=== PATIENT | female | born 1935 | race Caucasian/White ===

== ENCOUNTER 2018-06-17 11:17 | Inpatient (IN) | payer MEDICARE, OTHER ==
[~2018-06-17] VITALS: Ht 165.1 cm; Wt 73.3 kg
[2018-06-17] MEDS ORDERED: ALBUTEROL/IPRATROPIUM 2.5MG/0.5MG, 3 ML NPPB ONE (11:30)
[2018-06-17] MEDS ORDERED: SODIUM CHLORIDE FLUSH 10ML SYR IVF ONE (11:30)
[2018-06-17 12:18] LABS: MEAN CORPUSCULAR HEMOGLOBIN 30.1 pg (27.0-34.8); MEAN CORPUSCULAR HGB CONC 33.9 g/dL (32.4-35.8); MEAN CORPUSCULAR VOLUME 88.8 fL (80-100); MEAN PLATELET VOLUME 6.9 fL (7.4-10.4); PLATELET COUNT 215 x10^3/uL (130-400); RED BLOOD COUNT 4.69 x10^6/uL (3.82-5.3); RED CELL DISTRIBUTION WIDTH 14.1 % (9.6-15.2)
[2018-06-17] MEDS ORDERED: ALBUTEROL/IPRATROPIUM 2.5MG/0.5MG, 3 ML ONE (12:22)
[2018-06-17 12:34] LABS: ALBUMIN 3.1 g/dL (3.4-5.0); ANION GAP 7 mmol/L (5-15); CALCIUM 8.3 mg/dL (8.5-10.1); CHLORIDE 108 mmol/L (98-107)
[2018-06-17 12:40] LABS: CREATININE 0.94 mg/dL (0.55-1.02); TROPONIN I < 0.015 ng/mL (0.000-0.045)
[2018-06-17 12:46] LABS: BASOPHILS % (AUTO) 0 % (0-1); EOSINOPHILS # (AUTO) 0.04 x10^3/uL (0-0.4); EOSINOPHILS % (AUTO) 0 % (1-7); LYMPHOCYTES # (AUTO) 0.33 x10^3/uL (1-3.4); LYMPHOCYTES % (AUTO) 2 % (22-44); MD SCAN; MONOCYTES # (AUTO) 0.29 x10^3/uL (0.2-0.8); MONOCYTES % (AUTO) 2 % (2-9); NEUTROPHILS % (AUTO) 96 % (42-75)
--- NOTE | 2018-06-17 12:55 | NUR ---
LUNCH RN: RT AT BEDSIDE FOR RT TX.
[2018-06-17] MEDS ORDERED: CEFTRIAXONE PMX 1GM/50ML 50 ML IV ONE (13:00)
[2018-06-17] MEDS ORDERED: AZITHROMYCIN 500 MG in SODIUM CHLORIDE 0.9% 250 ML IV ONE (13:00)
[2018-06-17] MEDS ORDERED: CEFTRIAXONE PMX 1GM/50ML 50 ML ONE (13:30)
--- NOTE | 2018-06-17 13:39 | NUR ---
PT RESTING ON GURNEY. IV ABX INFUSING PER ORDER. PT STATES RELIEF OF SOB S/P RT TREATMENT. ALL CONCERNS ADRESSED. PT TO BE ADMITTED.
[2018-06-17] MEDS ORDERED: ALBU0.63 NEB (13:56)
[2018-06-17] MEDS ORDERED: FLUT12AE INH (13:56)
[2018-06-17] MEDS ORDERED: BLOOD PRESSURE MED (13:56)
[2018-06-17] MEDS ORDERED: "\\\"WATER PILL\\\"" (13:58)
--- NOTE | 2018-06-17 15:16 | NUR ---
HOSPITALIST TO BEDSIDE.
[2018-06-17] MEDS ORDERED: CYCLOBENZAPRINE 10 MG TABLET PO PRN (15:30)
[2018-06-17] MEDS ORDERED: ACETAMINOPHEN 325 MG TABLET PO PRN (15:30)
[2018-06-17] MEDS ORDERED: LABETALOL 5MG/ML, 20ML IVPush PRN (15:30)
[2018-06-17] MEDS ORDERED: DOCUSATE 100 MG CAPSULE PO PRN (15:30)
[2018-06-17] MEDS ORDERED: ONDANSETRON 2MG/ML, 2ML IVPush PRN (15:30)
[2018-06-17] MEDS ORDERED: morphine SULFATE 10 MG/ML, 1ML IVPush PRN (15:30)
[2018-06-17] MEDS ORDERED: ENOXAPARIN 40 MG/0.4 ML ONE (16:45)
[2018-06-17] MEDS: ENOXAPARIN 40 MG/0.4 ML SQ SCH (16:49)
--- NOTE | 2018-06-17 16:49 | NUR ---
pt porovided with meal tray. toshia. all cocnerns adressed. Addendum: 06/17/18 at 1741 by JERE pt provided with meal tray. toshia. all concerns adressed.
[2018-06-17 17:41] LABS: TROPONIN I < 0.015 ng/mL (0.000-0.045)
--- NOTE | 2018-06-17 17:45 | NUR ---
sbar report to lotus patiño over phone.
[2018-06-17 18:05] VITALS: BP 137/80
[2018-06-17] MEDS ORDERED: ALBUTEROL SULFATE 2.5 MG/3 ML NPPB PRN (18:30)
[2018-06-17] MEDS: BUDESONIDE 0.5 MG/2 ML INHA NPPB SCH ×2 (19:00→19:01)
[2018-06-17] MEDS: ALBUTEROL/IPRATROPIUM 2.5MG/0.5MG, 3 ML NPPB SCH (19:01)
[2018-06-17 20:00] VITALS: BP 107/65
[2018-06-17 20:51] LABS: TROPONIN I < 0.015 ng/mL (0.000-0.045)
[2018-06-17] MEDS ORDERED: SODIUM CHLORIDE 0.9% 1,000 ML IV SCH (21:30)
[2018-06-18 01:14] VITALS: BP 146/70
[2018-06-18] MEDS: ALBUTEROL/IPRATROPIUM 2.5MG/0.5MG, 3 ML NPPB SCH ×4 (05:53→19:00)
[2018-06-18 06:20] LABS: ANION GAP 4 mmol/L (5-15); CHLORIDE 111 mmol/L (98-107); TRIGLYCERIDES 88 mg/dL (50-200); VLDL CHOLESTEROL 18 mg/dL (0-25)
[2018-06-18 06:22] LABS: BASOPHILS # (AUTO) 0.02 x10^3/uL (0-0.1); BASOPHILS % (AUTO) 0 % (0-1); CHOL/HDL RATIO 1.8; CHOLESTEROL, TOTAL 160 mg/dL (140-239); CREATININE 1.09 mg/dL (0.55-1.02); EOSINOPHILS # (AUTO) 0.03 x10^3/uL (0-0.4); EOSINOPHILS % (AUTO) 0 % (1-7); HDL CHOL % 54 % (28-40); HDL CHOLESTEROL (DIRECT) 87 mg/dL (40-60); LDL CHOLESTEROL,CALCULATED 55 mg/dL (54-169); LDL/HDL RATIO 0.6 (0.5-3.0); LYMPHOCYTES % (AUTO) 12 % (22-44); MD NO; MEAN CORPUSCULAR HEMOGLOBIN 29.1 pg (27.0-34.8); MEAN CORPUSCULAR HGB CONC 32.9 g/dL (32.4-35.8); MEAN CORPUSCULAR VOLUME 88.6 fL (80-100); MEAN PLATELET VOLUME 6.8 fL (7.4-10.4); MONOCYTES # (AUTO) 0.42 x10^3/uL (0.2-0.8); MONOCYTES % (AUTO) 5 % (2-9); NEUTROPHILS % (AUTO) 83 % (42-75); PLATELET COUNT 201 x10^3/uL (130-400); RED BLOOD COUNT 4.25 x10^6/uL (3.82-5.3); RED CELL DISTRIBUTION WIDTH 14.4 % (9.6-15.2)
[2018-06-18 07:14] VITALS: BP 148/85
[2018-06-18] MEDS: BUDESONIDE 0.5 MG/2 ML INHA NPPB SCH ×2 (09:00→19:00)
[2018-06-18] MEDS ORDERED: OLME40TA12 PO (10:49)
[2018-06-18] MEDS: predniSONE 50MG TABLET PO SCH (11:57)
[2018-06-18] MEDS ORDERED: AZITHROMYCIN 500 MG in SODIUM CHLORIDE 0.9% 250 ML IV SCH ×2 (12:00→14:00)
[2018-06-18] MEDS ORDERED: CEFTRIAXONE PMX 1GM/50ML 50 ML IV SCH (13:00)
[2018-06-18 14:39] VITALS: BP 142/79
[2018-06-18] MEDS: ENOXAPARIN 40 MG/0.4 ML SQ SCH (15:58)
[2018-06-18] MEDS: GUAIFENESIN/COD200MG-20MG/10ML LIQUID PO PRN ×2 (15:58→23:16)
[2018-06-18 19:17] VITALS: BP 150/71
[2018-06-19 03:17] VITALS: BP 153/79
[2018-06-19 07:06] VITALS: BP 162/94
[2018-06-19] MEDS: BUDESONIDE 0.5 MG/2 ML INHA NPPB SCH (07:25)
[2018-06-19] MEDS: ALBUTEROL/IPRATROPIUM 2.5MG/0.5MG, 3 ML NPPB SCH (07:35)
[2018-06-19] MEDS ORDERED: LOSARTAN 50MG TABLET PO SCH (09:00)
[2018-06-19] MEDS: predniSONE 50MG TABLET PO SCH (09:04)
[2018-06-19] MEDS ORDERED: AZIT500T5 PO (09:28)
[2018-06-19] MEDS ORDERED: PRED10TA PO (09:28)
[2018-06-19] MEDS ORDERED: CEFP200T PO (09:28)
[2018-06-19 09:59] LABS: CALCIUM 8.3 mg/dL (8.5-10.1); CREATININE 0.92 mg/dL (0.55-1.02)
[2018-06-19 10:03] LABS: ANION GAP 9 mmol/L (5-15); CHLORIDE 111 mmol/L (98-107)
== END 2018-06-19 11:01 | disposition home or self-care (01) | DRG 871 ==
LOC: ED 13:09 → EDIP 13:10 → ED 13:50 → 4EST 17:59 → DCLOUNGE 06-19 10:56
PROVIDERS: ADMIT Internal Medicine; ATTEND Internal Medicine
DX: A41.9 Sepsis, unspecified organism (principal); J18.1 Lobar pneumonia, unspecified organism; J45.901 Unspecified asthma with (acute) exacerbation; I31.3 Pericardial effusion (noninflammatory); I10 Essential (primary) hypertension; E04.9 Nontoxic goiter, unspecified; Z80.41 Family history of malignant neoplasm of ovary; Z83.3 Family history of diabetes mellitus; Z85.118 Personal history of other malignant neoplasm of bronchus and lung; Z79.52 Long term (current) use of systemic steroids; Z90.710 Acquired absence of both cervix and uterus; Z87.891 Personal history of nicotine dependence
CPT/HCPCS: 36415; 71045; 71250; 80048; 80061; 82040; 83605; 83735; 83880; 84145; 84484; 85025; 87040; 90656; 93005; 93306; 93970; 94640; 96365; 96372; 96375; G0378; J0456; J0696; J1650; J7613; J7620; J7626; J7030; J7050; J7512

== ENCOUNTER 2018-07-04 11:55 | Inpatient (IN) | payer MEDICARE ==
[~2018-07-04] VITALS: Ht 165.1 cm; Wt 71.4 kg
[~2018-07-04 11:55] MED LIST: "\\\"WATER PILL\\\""; ALBU0.63 NEB; AZIT500T5 PO; BLOOD PRESSURE MED; CEFP200T PO; FLUT12AE INH; OLME40TA12 PO; PRED10TA PO
[2018-07-04] MEDS ORDERED: OXYcodone/APAP 5/325MG TABLET PO ONE (12:30)
[2018-07-04] MEDS ORDERED: OXYcodone/APAP 5/325MG TABLET ONE (12:37)
[2018-07-04] MEDS ORDERED: GADOBUTROL 7.5 MMOL/7.5 ML PFS ONE (13:50)
[2018-07-04] MEDS ORDERED: SODIUM CHLORIDE FLUSH 10ML SYR IVF ONE ×2 (14:00→15:00)
[2018-07-04 14:33] LABS: MEAN CORPUSCULAR HEMOGLOBIN 28.7 pg (27.0-34.8); MEAN CORPUSCULAR HGB CONC 32.8 g/dL (32.4-35.8); MEAN CORPUSCULAR VOLUME 87.6 fL (80-100); MEAN PLATELET VOLUME 6.8 fL (7.4-10.4); PLATELET COUNT 252 x10^3/uL (130-400); RED BLOOD COUNT 4.89 x10^6/uL (3.82-5.3); RED CELL DISTRIBUTION WIDTH 14.2 % (9.6-15.2)
[2018-07-04 14:41] LABS: ALBUMIN 2.9 g/dL (3.4-5.0); ANION GAP 6 mmol/L (5-15); CALCIUM 8.5 mg/dL (8.5-10.1); CHLORIDE 105 mmol/L (98-107); CREATININE 0.83 mg/dL (0.55-1.02)
[2018-07-04 14:59] LABS: BASOPHILS # (AUTO) 0.01 x10^3/uL (0-0.1); BASOPHILS % (AUTO) 0 % (0-1); EOSINOPHILS # (AUTO) 0.06 x10^3/uL (0-0.4); EOSINOPHILS % (AUTO) 1 % (1-7); LYMPHOCYTES # (AUTO) 0.47 x10^3/uL (1-3.4); LYMPHOCYTES % (AUTO) 4 % (22-44); MD SCAN; MONOCYTES # (AUTO) 0.12 x10^3/uL (0.2-0.8); MONOCYTES % (AUTO) 1 % (2-9); NEUTROPHILS # (AUTO) 11.53 x10^3/uL (1.8-6.8); NEUTROPHILS % (AUTO) 95 % (42-75)
[2018-07-04] MEDS ORDERED: SODIUM CHLORIDE 0.9% 1,000ML IVBOLUS ONE ×2 (15:00→17:00)
[2018-07-04 15:04] LABS: BILIRUBIN, DIRECT 0.1 mg/dL (0.1-0.2); BILIRUBIN,INDIRECT 0.5 mg/dL (0.0-2.0); BILIRUBIN,TOTAL 0.6 mg/dL (0.2-1.0); TOTAL PROTEIN 6.6 g/dL (6.4-8.2)
--- NOTE | 2018-07-04 16:22 | NUR ---
DAYTON SHERIDAN, FRIEND, REQUESTING UPDATE ON PT, PRIMARY RN NOTIFIED.
[2018-07-04 17:00] LABS: MICROSCOPIC NOT IND
[2018-07-04] MEDS ORDERED: ONDANSETRON 2MG/ML, 2ML IVPush ONE (17:00)
[2018-07-04 17:06] LABS: CULTURE INDICATED? NO
[2018-07-04] MEDS ORDERED: HYDROmorphone 1 MG/ML, 1ML AMP ONE (17:15)
[2018-07-04] MEDS ORDERED: ONDANSETRON 2MG/ML, 2ML ONE (17:17)
[2018-07-04] MEDS: HYDROmorphone 2 MG/ML, 1ML IVPush PRN ×2 (17:21→20:15)
[2018-07-04] MEDS ORDERED: OMNIPAQUE 350 MG/ML, 100ML BOTTLE ONE (18:07)
[2018-07-04] MEDS ORDERED: METOCLOPRAMIDE 5 MG/ML, 2ML IVPush PRN (19:00)
[2018-07-04] MEDS ORDERED: LABETALOL 5MG/ML, 20ML IVPush PRN (19:00)
--- NOTE | 2018-07-04 19:05 | NUR ---
RECEIVED REPORT FROM NARCISO BAINS. PT RESTING IN [facility]. VSS.
[2018-07-04] MEDS ORDERED: KETOROLAC 30 MG/1 ML ONE (20:11)
[2018-07-04] MEDS ORDERED: ENOXAPARIN 40 MG/0.4 ML ONE (20:11)
[2018-07-04] MEDS ORDERED: FAMOTIDINE 20 MG/2 ML ONE (20:12)
[2018-07-04] MEDS ORDERED: HYDROmorphone 2 MG/ML, 1ML ONE (20:12)
[2018-07-04] MEDS: KETOROLAC 30 MG/1 ML IVPush SCH (20:15)
[2018-07-04] MEDS: FAMOTIDINE 20 MG/2 ML IVPush SCH (20:15)
[2018-07-04] MEDS: ENOXAPARIN 40 MG/0.4 ML SQ SCH (20:18)
--- NOTE | 2018-07-04 20:20 | NUR ---
PT MEDICATED FOR PAIN ORDERED. VSS. PT REPORTED 6/10 PAIN IN HER BACK. 3 P'S ADDRESSED. STILL WAITING ON TELE BED FOR ADMIT.
--- NOTE | 2018-07-04 20:47 | NUR ---
Gray fullerjames in EDM - 07/04/18 at 2049 by BE PT UP TO NURSE'S STATION ASKING HER PAIN TO BE ADDRESSED. PT TOLD DR. AGUILA TO SEE HER SHORTLY AND PT WALKED BACK TO HER ROOM. PT REMOVED HER GOWN AND BACK IN HER CLOTHES. DR. AGUILA IS NOW AT HER BEDSIDE.
[2018-07-04] MEDS: SODIUM CHLORIDE 0.9% 1,000 ML IV SCH (21:14)
--- NOTE | 2018-07-04 21:18 | NUR ---
FLUIDS STARTED ON PT. 3 P'S ADDRESSED. VSS. STILL WAITING FOR TELE BED. PER POULTRY CUTTER, BED SHOULD BE SOON AND NO NEED TO HAVE PT PLACED ON HOSPITAL BED IN THE ER. PT AWARE.
[2018-07-04] MEDS ORDERED: ALBUTEROL/IPRATROPIUM 2.5MG/0.5MG, 3 ML ONE (22:01)
[2018-07-04] MEDS ORDERED: BUDESONIDE 0.5 MG/2 ML INHA ONE (22:01)
--- NOTE | 2018-07-04 22:07 | NUR ---
RECEIVED REPORT FROM NARA STEWARD
[2018-07-04] MEDS: BUDESONIDE 0.5 MG/2 ML INHA INH SCH (22:11)
[2018-07-04] MEDS: ALBUTEROL/IPRATROPIUM 2.5MG/0.5MG, 3 ML NPPB SCH (22:11)
--- NOTE | 2018-07-04 22:49 | NUR ---
PT RESTING ON GURNEY, RR EVEN AND UNLABORED. PT ON CONT SPO2, BP, AND [employer], VSS. AWAITING TELE ROOM ATT.
[2018-07-05 00:32] VITALS: BP 170/87
[2018-07-05] MEDS: MORPHINE SULFATE 4 MG/ML, 1ML IVPush PRN ×4 (00:50→20:51)
[2018-07-05 01:07] VITALS: BP 120/75
[2018-07-05 03:39] LABS: BASOPHILS # (AUTO) 0.01 x10^3/uL (0-0.1); BASOPHILS % (AUTO) 0 % (0-1); EOSINOPHILS # (AUTO) 0.06 x10^3/uL (0-0.4); EOSINOPHILS % (AUTO) 1 % (1-7); LYMPHOCYTES # (AUTO) 0.66 x10^3/uL (1-3.4); LYMPHOCYTES % (AUTO) 10 % (22-44); MD NO; MEAN CORPUSCULAR HEMOGLOBIN 29.3 pg (27.0-34.8); MEAN CORPUSCULAR HGB CONC 33.2 g/dL (32.4-35.8); MEAN CORPUSCULAR VOLUME 88.3 fL (80-100); MEAN PLATELET VOLUME 6.7 fL (7.4-10.4); MONOCYTES # (AUTO) 0.45 x10^3/uL (0.2-0.8); MONOCYTES % (AUTO) 6 % (2-9); NEUTROPHILS % (AUTO) 83 % (42-75); PLATELET COUNT 176 x10^3/uL (130-400); RED BLOOD COUNT 3.69 x10^6/uL (3.82-5.3); RED CELL DISTRIBUTION WIDTH 14.5 % (9.6-15.2)
[2018-07-05 03:42] LABS: ANION GAP 6 mmol/L (5-15); CALCIUM 7.3 mg/dL (8.5-10.1); CHLORIDE 110 mmol/L (98-107); CREATININE 0.71 mg/dL (0.55-1.02)
[2018-07-05 03:52] LABS: THYROID STIMULATING HORMONE 0.804 mIU/L (0.358-3.740)
[2018-07-05] MEDS: SODIUM CHLORIDE 0.9% 1,000 ML IV SCH ×3 (06:53→23:09)
[2018-07-05] MEDS: ALBUTEROL/IPRATROPIUM 2.5MG/0.5MG, 3 ML NPPB SCH ×3 (07:25→20:40)
[2018-07-05] MEDS: BUDESONIDE 0.5 MG/2 ML INHA INH SCH ×2 (07:25→20:40)
[2018-07-05 08:00] VITALS: BP 144/69
[2018-07-05] MEDS: FAMOTIDINE 20 MG/2 ML IVPush SCH (09:00)
[2018-07-05] MEDS: KETOROLAC 30 MG/1 ML IVPush SCH ×3 (09:00→16:39)
[2018-07-05] MEDS: LOSARTAN 50MG TABLET PO SCH (10:31)
[2018-07-05] MEDS: SENNA/DOCUSATE TABLET PO SCH (10:31)
[2018-07-05 14:22] VITALS: BP 149/76
[2018-07-05 19:01] VITALS: BP 136/78
[2018-07-05] MEDS ORDERED: FAMOTIDINE 20 MG/2 ML IVPush SCH (20:00)
[2018-07-05] MEDS: ENOXAPARIN 40 MG/0.4 ML SQ SCH (20:51)
[2018-07-06 00:11] VITALS: BP 143/81
[2018-07-06] MEDS: KETOROLAC 30 MG/1 ML IVPush SCH ×4 (02:58→20:21)
[2018-07-06] MEDS: ALBUTEROL/IPRATROPIUM 2.5MG/0.5MG, 3 ML NPPB SCH ×3 (06:45→18:51)
[2018-07-06 07:55] VITALS: BP 178/92
[2018-07-06] MEDS: BUDESONIDE 0.5 MG/2 ML INHA INH SCH ×2 (09:10→18:51)
[2018-07-06] MEDS: LOSARTAN 50MG TABLET PO SCH (10:08)
[2018-07-06] MEDS: SENNA/DOCUSATE TABLET PO SCH (10:08)
[2018-07-06] MEDS: SODIUM CHLORIDE 0.9% 1,000 ML IV SCH ×3 (10:10→23:00)
[2018-07-06] MEDS: MORPHINE SULFATE 4 MG/ML, 1ML IVPush PRN (13:50)
[2018-07-06 14:55] VITALS: BP 162/102
[2018-07-06] MEDS ORDERED: LABETALOL 5 MG/ML SYRINGE IVPush PRN (16:00)
[2018-07-06 18:45] VITALS: BP 171/99
[2018-07-06] MEDS: ENOXAPARIN 40 MG/0.4 ML SQ SCH (20:20)
[2018-07-06] MEDS: FAMOTIDINE 20 MG/2 ML IVPush SCH (20:21)
[2018-07-07] MEDS: MORPHINE SULFATE 4 MG/ML, 1ML IVPush PRN ×2 (02:12→06:04)
[2018-07-07 02:29] VITALS: BP 179/95
[2018-07-07] MEDS: ENALAPRILAT 1.25 MG/ML, 2ML IVPush PRN ×2 (03:55→04:21)
[2018-07-07 05:57] VITALS: BP 186/89
[2018-07-07 06:00] VITALS: BP 180/93
[2018-07-07] MEDS: SODIUM CHLORIDE 0.9% 1,000 ML IV SCH (07:00)
[2018-07-07] MEDS: ALBUTEROL/IPRATROPIUM 2.5MG/0.5MG, 3 ML NPPB SCH (08:34)
[2018-07-07] MEDS: BUDESONIDE 0.5 MG/2 ML INHA INH SCH (08:34)
[2018-07-07] MEDS: FAMOTIDINE 20 MG/2 ML IVPush SCH (08:35)
[2018-07-07] MEDS: LOSARTAN 50MG TABLET PO SCH (08:35)
[2018-07-07] MEDS: KETOROLAC 30 MG/1 ML IVPush SCH (08:36)
[2018-07-07] MEDS: SENNA/DOCUSATE TABLET PO SCH (08:36)
[2018-07-07 13:17] VITALS: BP 131/69
[2018-07-07] MEDS ORDERED: HYDR-3307 PO (13:33)
== END 2018-07-07 14:15 | disposition hospice, home (50) | DRG 543 ==
LOC: ED 13:20 → EDIP 17:44 → ICU 07-05 00:24 → DCLOUNGE 07-07 14:03
PROVIDERS: ADMIT Family Medicine; ATTEND Family Medicine
PROC: 0T9B70Z Drainage of Bladder with Drainage Device, Via Natural or Artificial Opening (ICD-10-PCS; principal; 2018-07-04)
DX: M48.54XA Collapsed vertebra, not elsewhere classified, thoracic region, initial encounter for fracture (principal); K56.7 Ileus, unspecified; K56.609 Unspecified intestinal obstruction, unspecified as to partial versus complete obstruction; I16.0 Hypertensive urgency; J45.909 Unspecified asthma, uncomplicated; E86.0 Dehydration; G47.00 Insomnia, unspecified; I10 Essential (primary) hypertension; R00.0 Tachycardia, unspecified; Z66 Do not resuscitate; Z91.81 History of falling; Z85.118 Personal history of other malignant neoplasm of bronchus and lung; Z87.891 Personal history of nicotine dependence; Z92.21 Personal history of antineoplastic chemotherapy; Z92.3 Personal history of irradiation
CPT/HCPCS: 36415; 71045; 72157; 74177; 80048; 80076; 81003; 82040; 83605; 83690; 84145; 84443; 85025; 87040; 87081; 93005; 94640; 96361; 96374; 96375; A9585; G0378; J1170; J1650; J1885; J2405; J7620; J7626; Q9967; J2765; J3490; J7030